=== PATIENT | male | born 1940 | race Caucasian/White ===

== ENCOUNTER 2022-04-15 11:56 | Emergency (ER) | payer OTHER ==
[~2022-04-15] VITALS: Ht 172.7 cm; Wt 90.7 kg
[2022-04-15 13:32] LABS: BASOPHILS ABSOLUTE AUTO 0.02 K/mm3 (0.00-0.23); BASOPHILS PERCENT AUTO 0 % (0-2); EOSINOPHILS PERCENT AUTO 0 % (0-6); Hematocrit 45.2 % (37.0-53.0); Hemoglobin 15.9 g/dL (13.5-17.5); IMMATURE GRAN ABSOLUTE AUTO 0.03 K/mm3 (0.00-0.10); IMMATURE GRAN PERCENT AUTO 0 % (0-1); LYMPHOCYTES ABSOLUTE AUTO 0.75 K/mm3 (0.84-5.20); LYMPHOCYTES PERCENT AUTO 8 % (21-46); MONOCYTES ABSOLUTE AUTO 0.68 K/mm3 (0.16-1.47); MONOCYTES PERCENT AUTO 7 % (4-13); Mean Corpuscular HGB 32.1 pg (26.0-34.0); Mean Corpuscular HGB Conc 35.2 g/dL (31.5-36.5); Mean Corpuscular Volume 91 fL (80-100); NEUTROPHILS ABSOLUTE AUTO 8.28 K/mm3 (1.96-9.15); NEUTROPHILS PERCENT AUTO 85 % (41-73); Platelet Count 182 K/mm3 (150-400); RDW Coefficient Variation 12.5 % (11.7-14.2); RDW Standard Deviation 41.5 fL (35.1-46.3); Red Blood Cell Count 4.96 M/mm3 (4.30-5.90); White Blood Cell Count 9.76 K/mm3 (4.00-11.30)
[2022-04-15 13:49] LABS: Albumin, Blood 3.9 g/dL (3.4-5.0); Albumin/Globulin Ratio 1.2 (0.8-1.8); Bilirubin, Total 0.9 mg/dL (0.1-1.0); Bun/Creatinine Ratio 12.1 (12.0-20.0); Calcium, Blood 9.4 mg/dL (8.5-10.1); Creatinine, Blood 1.99 mg/dL (0.60-1.20); Globulin, Blood 3.3 g/dL (2.2-4.0); Potassium, Blood 4.5 mmol/L (3.5-5.5); Total Protein, Blood 7.2 g/dL (6.4-8.2)
[2022-04-15 14:56] LABS: Source, Urine Clean Catch
[2022-04-15 15:00] LABS: Appearance, Urine Clear (Clear); Bilirubin, Urine Neg (Neg); Blood, Urine 4+ (Neg); Color, Urine Yellow (P-Yellow); Glucose Qualitative, Urine Neg (Neg); Ketones, Urine Neg (Neg); Leukocyte Esterase, Urine Neg (Neg); Nitrite, Urine Neg (Neg); Protein, Urine Neg (Neg); Urobilinogen, Urine NORM (Normal)
[2022-04-15 15:16] LABS: Bacteria Rare /hpf; Red Blood Cells, Urine 25-50 /hpf (0-2); Squamous Epithelial Cells Few /hpf (Few); White Blood Cells, Urine 0-2 /hpf (0-5)
== END 2022-04-15 17:09 | disposition home or self-care (01) ==
LOC: ER 11:56
PROVIDERS: Physician Assistant
DX: R33.9 Retention of urine, unspecified (principal); I25.10 Atherosclerotic heart disease of native coronary artery without angina pectoris; I25.2 Old myocardial infarction; Z87.891 Personal history of nicotine dependence
CPT/HCPCS: 36415; 51702; 51798; 74176; 80053; 81001; 83690; 85025; J1885; J7030

== ENCOUNTER → 2022-04-21 | Outpatient (CLI) | payer OTHER ==
[~2022-04-21] MED LIST: MYRBETRIQ25 MG PO
== END ==
LOC: LAB 15:18 → LAB SHORT 15:18
DX: N40.1 Benign prostatic hyperplasia with lower urinary tract symptoms (principal); N17.9 Acute kidney failure, unspecified; N21.0 Calculus in bladder; R31.0 Gross hematuria; R33.8 Other retention of urine
CPT/HCPCS: 87086

== ENCOUNTER 2022-04-22 04:37 | Emergency (ER) | payer OTHER ==
[~2022-04-22] VITALS: Ht 172.7 cm; Wt 90.7 kg
[2022-04-22 07:09] LABS: Source, Urine Foley catheter
[2022-04-22 07:29] LABS: Appearance, Urine Bloody (Clear); Bilirubin, Urine Neg (Neg); Blood, Urine 5+ (Neg); Color, Urine Red (P-Yellow); Glucose Qualitative, Urine Neg (Neg); Ketones, Urine 2+ (Neg); Leukocyte Esterase, Urine Neg (Neg); Nitrite, Urine Neg (Neg); Protein, Urine 4+ (Neg); Specific Gravity, Urine 1.015 (1.003-1.022); Urobilinogen, Urine NORM (Normal)
[2022-04-22 07:34] LABS: Bacteria Rare /hpf; Red Blood Cells, Urine TNTC /hpf (0-2); Squamous Epithelial Cells Not Seen /hpf (Few)
[2022-04-22 08:10] LABS: Triple Phosphate Crystals Few /hpf
[2022-04-22 08:32] LABS: BASOPHILS ABSOLUTE AUTO 0.04 K/mm3 (0.00-0.23); BASOPHILS PERCENT AUTO 1 % (0-2); EOSINOPHILS ABSOLUTE AUTO 0.37 K/mm3 (0.00-0.68); EOSINOPHILS PERCENT AUTO 6 % (0-6); Hematocrit 40.5 % (37.0-53.0); Hemoglobin 13.9 g/dL (13.5-17.5); IMMATURE GRAN ABSOLUTE AUTO 0.02 K/mm3 (0.00-0.10); IMMATURE GRAN PERCENT AUTO 0 % (0-1); LYMPHOCYTES ABSOLUTE AUTO 1.29 K/mm3 (0.84-5.20); LYMPHOCYTES PERCENT AUTO 20 % (21-46); MONOCYTES ABSOLUTE AUTO 0.55 K/mm3 (0.16-1.47); MONOCYTES PERCENT AUTO 8 % (4-13); Mean Corpuscular HGB Conc 34.3 g/dL (31.5-36.5); Mean Corpuscular Volume 93 fL (80-100); NEUTROPHILS ABSOLUTE AUTO 4.25 K/mm3 (1.96-9.15); NEUTROPHILS PERCENT AUTO 65 % (41-73); Platelet Count 179 K/mm3 (150-400); RDW Coefficient Variation 12.6 % (11.7-14.2); RDW Standard Deviation 43.5 fL (35.1-46.3); Red Blood Cell Count 4.34 M/mm3 (4.30-5.90); White Blood Cell Count 6.52 K/mm3 (4.00-11.30)
[2022-04-22 08:59] LABS: Bun/Creatinine Ratio 15.7 (12.0-20.0); Calcium, Blood 8.4 mg/dL (8.5-10.1); Creatinine, Blood 1.02 mg/dL (0.60-1.20); Potassium, Blood 4.2 mmol/L (3.5-5.5)
== END 2022-04-22 10:34 | disposition home or self-care (01) ==
LOC: ER 04:37
PROVIDERS: Emergency Medicine
DX: T83.091A Other mechanical complication of indwelling urethral catheter, initial encounter (principal); R31.9 Hematuria, unspecified; I25.10 Atherosclerotic heart disease of native coronary artery without angina pectoris; I25.2 Old myocardial infarction; Z95.5 Presence of coronary angioplasty implant and graft; Z87.891 Personal history of nicotine dependence; Y84.8 Other medical procedures as the cause of abnormal reaction of the patient, or of later complication, without mention of misadventure at the time of the procedure
CPT/HCPCS: 80048; 81001; 85025

== ENCOUNTER 2022-04-24 04:21 | Emergency (ER) | payer OTHER ==
[~2022-04-24] VITALS: Ht 172.7 cm; Wt 90.7 kg
[2022-04-24] MEDS ORDERED: MYRBETRIQ25 MG PO (05:41)
[2022-04-24 06:58] LABS: Source, Urine Foley catheter
[2022-04-24 07:10] LABS: Bilirubin, Urine Neg (Neg); Blood, Urine 5+ (Neg); Glucose Qualitative, Urine Neg (Neg); Ketones, Urine Neg (Neg); Leukocyte Esterase, Urine Neg (Neg); Nitrite, Urine Neg (Neg); Protein, Urine 3+ (Neg); Specific Gravity, Urine 1.015 (1.003-1.022); Urobilinogen, Urine NORM (Normal)
[2022-04-24 07:18] LABS: Appearance, Urine Bloody (Clear)
[2022-04-24 07:22] LABS: Red Blood Cells, Urine TNTC /hpf (0-2); Squamous Epithelial Cells Not Seen /hpf (Few); White Blood Cells, Urine 0-2 /hpf (0-5)
[2022-04-24 07:23] LABS: Bacteria Few /hpf
[2022-04-24 07:24] LABS: Color, Urine Red (P-Yellow)
[2022-04-24 07:25] LABS: Triple Phosphate Crystals Few /hpf
[2022-04-24 08:47] LABS: BASOPHILS ABSOLUTE AUTO 0.06 K/mm3 (0.00-0.23); BASOPHILS PERCENT AUTO 1 % (0-2); EOSINOPHILS ABSOLUTE AUTO 0.16 K/mm3 (0.00-0.68); EOSINOPHILS PERCENT AUTO 2 % (0-6); Hematocrit 40.2 % (37.0-53.0); Hemoglobin 13.9 g/dL (13.5-17.5); IMMATURE GRAN ABSOLUTE AUTO 0.03 K/mm3 (0.00-0.10); IMMATURE GRAN PERCENT AUTO 0 % (0-1); LYMPHOCYTES ABSOLUTE AUTO 1.19 K/mm3 (0.84-5.20); LYMPHOCYTES PERCENT AUTO 12 % (21-46); MONOCYTES ABSOLUTE AUTO 0.82 K/mm3 (0.16-1.47); MONOCYTES PERCENT AUTO 8 % (4-13); Mean Corpuscular HGB 31.9 pg (26.0-34.0); Mean Corpuscular HGB Conc 34.6 g/dL (31.5-36.5); Mean Corpuscular Volume 92 fL (80-100); NEUTROPHILS ABSOLUTE AUTO 7.53 K/mm3 (1.96-9.15); NEUTROPHILS PERCENT AUTO 77 % (41-73); Platelet Count 202 K/mm3 (150-400); RDW Coefficient Variation 12.4 % (11.7-14.2); RDW Standard Deviation 42.2 fL (35.1-46.3); Red Blood Cell Count 4.36 M/mm3 (4.30-5.90); White Blood Cell Count 9.79 K/mm3 (4.00-11.30)
[2022-04-24 09:04] LABS: Albumin, Blood 3.5 g/dL (3.4-5.0); Albumin/Globulin Ratio 1.1 (0.8-1.8); Bilirubin, Total 0.5 mg/dL (0.1-1.0); Bun/Creatinine Ratio 19.8 (12.0-20.0); Calcium, Blood 8.8 mg/dL (8.5-10.1); Creatinine, Blood 1.06 mg/dL (0.60-1.20); Globulin, Blood 3.2 g/dL (2.2-4.0); Magnesium, Blood 2.2 mg/dL (1.6-2.4); Potassium, Blood 4.1 mmol/L (3.5-5.5); Total Protein, Blood 6.7 g/dL (6.4-8.2)
[2022-04-24 12:58] LABS: Influenza A, PCR NEGATIVE (NEGATIVE); Influenza B, PCR NEGATIVE (NEGATIVE); Resp Syncytial Virus, PCR NEGATIVE (NEGATIVE); SARS-Cov-2 (COVID-19) PCR, MMC NEGATIVE (NEGATIVE)
== END 2022-04-24 13:11 | disposition short-term general hospital (02) ==
LOC: ER 04:21
PROVIDERS: Physician Assistant; Student in an Organized Health Care Education/Training Program
DX: T83.091A Other mechanical complication of indwelling urethral catheter, initial encounter (principal); R31.9 Hematuria, unspecified; I25.10 Atherosclerotic heart disease of native coronary artery without angina pectoris; Z79.899 Other long term (current) drug therapy; Z87.891 Personal history of nicotine dependence
CPT/HCPCS: 0241U; 51702; 51798; 74177; 80053; 81001; 83735; 85025; Q9967

== ENCOUNTER 2022-05-04 06:01 | Emergency (ER) | payer OTHER ==
[~2022-05-04] VITALS: Ht 170.2 cm; Wt 77.1 kg
[2022-05-04 07:04] LABS: Source, Urine Foley catheter
[2022-05-04 07:12] LABS: Appearance, Urine Hazy (Clear); Bilirubin, Urine Neg (Neg); Blood, Urine 5+ (Neg); Color, Urine Yellow (P-Yellow); Glucose Qualitative, Urine Neg (Neg); Ketones, Urine Neg (Neg); Leukocyte Esterase, Urine 3+ (Neg); Nitrite, Urine Neg (Neg); Protein, Urine 3+ (Neg); Specific Gravity, Urine 1.005 (1.003-1.022); Urobilinogen, Urine NORM (Normal)
[2022-05-04 07:18] LABS: Bacteria Many /hpf; Red Blood Cells, Urine 50-100 /hpf (0-2); Squamous Epithelial Cells Rare /hpf (Few); White Blood Cells, Urine 50-100 /hpf (0-5)
== END 2022-05-04 08:13 | disposition home or self-care (01) ==
LOC: ER 06:01
PROVIDERS: Emergency Medicine
DX: R33.9 Retention of urine, unspecified (principal); I25.10 Atherosclerotic heart disease of native coronary artery without angina pectoris; I25.2 Old myocardial infarction; Z95.5 Presence of coronary angioplasty implant and graft; Z79.899 Other long term (current) drug therapy; Z87.891 Personal history of nicotine dependence
CPT/HCPCS: 51702; 51798; 81001

== ENCOUNTER → 2023-05-31 | Outpatient (CLI) | payer OTHER ==
[~2023-05-31] MED LIST changes: +ASPI81CH PO; +ATOR80 PO; +TICA90TA PO
[2023-05-31 15:09] LABS: BASOPHILS ABSOLUTE AUTO 0.04 K/mm3 (0.00-0.23); BASOPHILS PERCENT AUTO 1 % (0-2); EOSINOPHILS ABSOLUTE AUTO 0.09 K/mm3 (0.00-0.68); EOSINOPHILS PERCENT AUTO 1 % (0-6); Hematocrit 45.2 % (37.0-53.0); Hemoglobin 15.9 g/dL (13.5-17.5); IMMATURE GRAN ABSOLUTE AUTO 0.02 K/mm3 (0.00-0.10); IMMATURE GRAN PERCENT AUTO 0 % (0-1); LYMPHOCYTES ABSOLUTE AUTO 1.17 K/mm3 (0.84-5.20); LYMPHOCYTES PERCENT AUTO 18 % (21-46); MONOCYTES ABSOLUTE AUTO 0.33 K/mm3 (0.16-1.47); MONOCYTES PERCENT AUTO 5 % (4-13); Mean Corpuscular HGB 32.3 pg (26.0-34.0); Mean Corpuscular HGB Conc 35.2 g/dL (31.5-36.5); Mean Corpuscular Volume 92 fL (80-100); Mean Platelet Volume 10.3 fL (9.1-12.4); NEUTROPHILS ABSOLUTE AUTO 4.95 K/mm3 (1.96-9.15); NEUTROPHILS PERCENT AUTO 75 % (41-73); Platelet Count 178 K/mm3 (150-400); RDW Coefficient Variation 12.8 % (11.7-14.2); RDW Standard Deviation 42.6 fL (35.1-46.3); Red Blood Cell Count 4.93 M/mm3 (4.30-5.90)
[2023-05-31 15:19] LABS: Albumin, Blood 3.9 g/dL (3.4-5.0); Albumin/Globulin Ratio 1.3 (0.8-1.8); Bilirubin, Total 0.7 mg/dL (0.1-1.0); Bun/Creatinine Ratio 12.7 (12.0-20.0); Calcium, Blood 8.7 mg/dL (8.5-10.1); Creatinine, Blood 1.02 mg/dL (0.60-1.20); Globulin, Blood 3.1 g/dL (2.2-4.0); Potassium, Blood 3.7 mmol/L (3.5-5.5)
== END ==
LOC: LAB SHORT 15:01 → LAB 15:01
PROVIDERS: Physician Assistant
DX: R07.9 Chest pain, unspecified (principal)
CPT/HCPCS: 80053; 83690; 83880; 84484; 85025

== ENCOUNTER 2023-07-24 19:54 | Inpatient (IN) | payer OTHER ==
[~2023-07-24] VITALS: Ht 172.7 cm; Wt 80.8 kg
[2023-07-24] MEDS ORDERED: BRILINTA90 M7 PO (20:17)
[2023-07-24] MEDS ORDERED: METOPROLOL SUCC25 MG PO (20:18)
[2023-07-24 20:50] LABS: BASOPHILS ABSOLUTE AUTO 0.03 K/mm3 (0.00-0.23); BASOPHILS PERCENT AUTO 0 % (0-2); EOSINOPHILS PERCENT AUTO 0 % (0-6); Hematocrit 41.3 % (37.0-53.0); Hemoglobin 14.4 g/dL (13.5-17.5); IMMATURE GRAN ABSOLUTE AUTO 0.06 K/mm3 (0.00-0.10); IMMATURE GRAN PERCENT AUTO 1 % (0-1); LYMPHOCYTES ABSOLUTE AUTO 0.43 K/mm3 (0.84-5.20); LYMPHOCYTES PERCENT AUTO 4 % (21-46); MONOCYTES ABSOLUTE AUTO 0.56 K/mm3 (0.16-1.47); MONOCYTES PERCENT AUTO 5 % (4-13); Mean Corpuscular HGB 31.7 pg (26.0-34.0); Mean Corpuscular HGB Conc 34.9 g/dL (31.5-36.5); Mean Corpuscular Volume 91 fL (80-100); Mean Platelet Volume 9.7 fL (9.1-12.4); NEUTROPHILS ABSOLUTE AUTO 10.62 K/mm3 (1.96-9.15); NEUTROPHILS PERCENT AUTO 91 % (41-73); Platelet Count 189 K/mm3 (150-400); RDW Coefficient Variation 13.2 % (11.7-14.2); Red Blood Cell Count 4.54 M/mm3 (4.30-5.90)
[2023-07-24 21:48] LABS: Albumin, Blood 4.1 g/dL (3.4-5.0); Albumin/Globulin Ratio 1.1 (0.8-1.8); Bilirubin, Total 0.6 mg/dL (0.1-1.0); Bun/Creatinine Ratio 6.1 (12.0-20.0); Calcium, Blood 9.1 mg/dL (8.5-10.1); Creatinine, Blood 18.3 mg/dL (0.60-1.20); Globulin, Blood 3.8 g/dL (2.2-4.0); Total Protein, Blood 7.9 g/dL (6.4-8.2)
[2023-07-24 21:50] LABS: Potassium, Blood 6.1 mmol/L (3.5-5.5)
[2023-07-24 23:09] LABS: Source, Urine Clean Catch
[2023-07-24 23:36] LABS: Bilirubin, Urine Neg (Neg); Blood, Urine 5+ (Neg); Glucose Qualitative, Urine Neg (Neg); Ketones, Urine Neg (Neg); Leukocyte Esterase, Urine 1+ (Neg); Nitrite, Urine Neg (Neg); Protein, Urine 2+ (Neg); Urobilinogen, Urine NORM (Normal)
[2023-07-24 23:36] LABS: International Normalized Ratio 1.05
[2023-07-24 23:52] LABS: Salicylate 2.4 mg/dL (2.8-20.0)
[2023-07-24 23:53] LABS: Ethanol (Alcohol), Blood, Med <3 mg/dL; Magnesium, Blood 2.8 mg/dL (1.6-2.4)
[2023-07-24 23:54] LABS: Acetaminophen, Random <2.0 ug/mL (10.0-30.0)
[2023-07-25] VITALS (7 sets, daily range): BP systolic 136–174; BP diastolic 62–95
[2023-07-25 00:02] LABS: U Amphetamine Screen Not Detected; U Barbituate Screen Not Detected; U Benzodiazapine Screen Not Detected; U Buprenorphine Screen Not Detected; U Cannabinoids Screen Not Detected; U Cocaine Screen Not Detected; U Methadone Screen Not Detected; U Methamphetamine Screen Not Detected; U Opiates Screen Not Detected; U Oxycodone Screen Not Detected; U Phencyclidine Screen Not Detected; U Propoxyphene Screen Not Detected
[2023-07-25 00:12] LABS: Influenza A, PCR NEGATIVE (NEGATIVE); Influenza B, PCR NEGATIVE (NEGATIVE); Resp Syncytial Virus, PCR NEGATIVE (NEGATIVE); SARS-Cov-2 (COVID-19) PCR, MMC NEGATIVE (NEGATIVE)
[2023-07-25 00:14] LABS: Appearance, Urine Hazy (Clear); Color, Urine Yellow (P-Yellow)
[2023-07-25 00:15] LABS: Bacteria Few /hpf; Red Blood Cells, Urine 50-100 /hpf (0-2); Squamous Epithelial Cells Few /hpf (Few); White Blood Cells, Urine 0-2 /hpf (0-5)
[2023-07-25 00:16] LABS: Amorphous Light (0-Heavy)
[2023-07-25 00:23] LABS: Phosphorus, Blood 8.8 mg/dL (2.5-4.9)
--- NOTE | 2023-07-25 05:19 | NUR ---
SHIFT SUMMARY/ARRIVAL TO PCU NOTE: RECEIVED REPORT FROM CASINO FLOOR PERSON ELICEO GORDON, PT SHORTLY ARRIVED TO PCU 11 ~0206 THIS AM. SLID FROM GURNEY TO PCU BED VIA SLIDE SHEET. PT ALERT, BUT ONLY ORIENTATED TO HIMSELF AND THAT HE IS IN THE HOSPITAL. VERY [place] AND CAN BE SLOW TO REPSOND AT TIMES. CARDIAC, ARRIVED IN SINUS ARRYHYTHMIA 60-80'S W/INTERMITTENT PAC'S. SBP HAS BEEN STABLE RANGING 140-150'S WITH NO REPORTS OF CP OR PRESSURE. REPSPIRATORY, MAINTAINS SPO2 >92% ON RA WITH NO REPORTS OF SOB OR DSYPNEA. GI/, DAVIDSON CATH PATENT AND DRAINING JAMILAH COLORED URINE TO GRAVITY. BS PRESENT T/O WITH NO REPORTS OF ABD PAIN OR N/V/D. PT REPORT'S THAT HE LIVES BY HIMSELF AND HAS RECENTLY HAD AN INCREASING NUMBER OF FALLS AT HOME. BICARB gtt INFUSING ORDERED VIA EMAR. ASSESSED PT FOR RISKS OF ANY IGNITION SOURCES WELL BEHAVIORS FOR INCREASED RISKS OF FIRE DANGER. PT EDUCATED ON COMMON SOURCES OF IGNITION WELL NEED TO KEEP A SAFE ENVIRONMENT. PT VOICED UNDERSTANDING. NO NEW ORDERS AT THIS TIME, WILL REPORT TO ONCOMING RN. RONNIE KELLY OF THIS NOTE
[2023-07-25 05:30] LABS: Bun/Creatinine Ratio 8.1 (12.0-20.0); Creatinine, Blood 8.96 mg/dL (0.60-1.20); Potassium, Blood 4.4 mmol/L (3.5-5.5)
--- NOTE | 2023-07-25 09:40 | NUR ---
Spoke with pt's brother Devaughn Mcgraw by phone; he lives in [place]. He provided pt's neighbor Lolis's phone number. States there are several people who live in [place] the [place], and look out for each other. Updated Devaughn on pt's current condition and plan of treatment. STates pt is normally not confused, and lives independently. PT states that he still drives.
[2023-07-25 10:08] LABS: Bun/Creatinine Ratio 11.1 (12.0-20.0); Calcium, Blood 9.2 mg/dL (8.5-10.1); Creatinine, Blood 4.25 mg/dL (0.60-1.20); Potassium, Blood 3.6 mmol/L (3.5-5.5)
--- NOTE | 2023-07-25 11:54 | NUR ---
Pt is working with occupational therapist right now.
--- NOTE | 2023-07-25 14:03 | NUR ---
Pt is alert, cooperative and pleasantly conversant ; however, he is very forgetful.
--- NOTE | 2023-07-25 17:44 | NUR ---
Pt is sitting up, eating dinner. Cheerfuly conversant. He has no complaints.
[2023-07-26 04:20] VITALS: BP 156/85
[2023-07-26 04:57] LABS: BASOPHILS ABSOLUTE AUTO 0.03 K/mm3 (0.00-0.23); BASOPHILS PERCENT AUTO 0 % (0-2); EOSINOPHILS ABSOLUTE AUTO 0.28 K/mm3 (0.00-0.68); EOSINOPHILS PERCENT AUTO 4 % (0-6); Hematocrit 35.6 % (37.0-53.0); Hemoglobin 12.7 g/dL (13.5-17.5); IMMATURE GRAN ABSOLUTE AUTO 0.03 K/mm3 (0.00-0.10); IMMATURE GRAN PERCENT AUTO 0 % (0-1); LYMPHOCYTES ABSOLUTE AUTO 1.44 K/mm3 (0.84-5.20); LYMPHOCYTES PERCENT AUTO 19 % (21-46); MONOCYTES ABSOLUTE AUTO 0.84 K/mm3 (0.16-1.47); MONOCYTES PERCENT AUTO 11 % (4-13); Mean Corpuscular HGB 31.8 pg (26.0-34.0); Mean Corpuscular HGB Conc 35.7 g/dL (31.5-36.5); Mean Corpuscular Volume 89 fL (80-100); Mean Platelet Volume 10.1 fL (9.1-12.4); NEUTROPHILS ABSOLUTE AUTO 4.93 K/mm3 (1.96-9.15); NEUTROPHILS PERCENT AUTO 65 % (41-73); Platelet Count 174 K/mm3 (150-400); RDW Coefficient Variation 12.6 % (11.7-14.2); RDW Standard Deviation 41.1 fL (35.1-46.3); Red Blood Cell Count 3.99 M/mm3 (4.30-5.90); White Blood Cell Count 7.55 K/mm3 (4.00-11.30)
[2023-07-26 05:44] LABS: Bun/Creatinine Ratio 19.9 (12.0-20.0); Creatinine, Blood 0.95 mg/dL (0.60-1.20); Potassium, Blood 3.3 mmol/L (3.5-5.5)
--- NOTE | 2023-07-26 07:05 | NUR ---
SHIFT SUMMARY PATIENT ALERT AND ORIENTED X3, FORGETFUL. 1 ASSIST WITH FWW TO THE RESTROOM. PATIENT HAD NO COMPLAINTS OF PAIN OR SHORTNESS OF BREATH. SPO2 >90% ON ROOM AIR. VITAL SIGNS STABLE, NO EVENTS ON TELEMETRY. DENIES CHEST PAIN. NO ACUTE ISSUES NOTED OVERNIGHT. WILL CONTINUE TO MONITOR. CALL LIGHT WITHIN REACH.
[2023-07-26 07:21] VITALS: BP 133/79
--- NOTE | 2023-07-26 07:36 | NUR ---
Bedside report received from TONY Vanessa. The pt is sitting up in a chair, drinking tea. His memory is spotty on the last couple of days. He is oriented to person, place, but really lacks insight as to why he came to the hospital, urinary retention(he denies any history of this, but with reminders can say that he did have catheters in the past), and ongoing treatment.
--- NOTE | 2023-07-26 11:29 | NUR ---
Pt talking with his neighbor Lisandro on the phone, requesting ride home from hospital today at discharge.
--- NOTE | 2023-07-26 13:06 | NUR ---
Discharge instructions were reviewed with the patient Eitan as well as his neighbor Lisandro who is here to give him a ride home. The pt has memory deficits, so Lisandro said that he would give the discharge information, including urology follow up appointment info for 08/02/23 to the pt's son Eitan Mcgraw who will be arriving on July 28. Dc catheter in place, draining clear yellow urine.
== END 2023-07-26 13:13 | disposition home or self-care (01) | DRG 682 ==
LOC: ER 19:54 → PCU 07-25 01:33
PROVIDERS: Emergency Medicine; Family Medicine; ADMIT Internal Medicine
PROC: 0T9B70Z Drainage of Bladder with Drainage Device, Via Natural or Artificial Opening (ICD-10-PCS; principal; 2023-07-25)
DX: N17.9 Acute kidney failure, unspecified (principal); G92.8 Other toxic encephalopathy; N13.8 Other obstructive and reflux uropathy; I25.10 Atherosclerotic heart disease of native coronary artery without angina pectoris; E87.5 Hyperkalemia; I10 Essential (primary) hypertension; G47.33 Obstructive sleep apnea (adult) (pediatric); R73.03 Prediabetes; N13.30 Unspecified hydronephrosis; N40.1 Benign prostatic hyperplasia with lower urinary tract symptoms; F03.A0 Unspecified dementia, mild, without behavioral disturbance, psychotic disturbance, mood disturbance, and anxiety; E78.00 Pure hypercholesterolemia, unspecified; E79.0 Hyperuricemia without signs of inflammatory arthritis and tophaceous disease; E83.39 Other disorders of phosphorus metabolism; R77.8 Other specified abnormalities of plasma proteins; R33.8 Other retention of urine; D72.829 Elevated white blood cell count, unspecified; Z95.5 Presence of coronary angioplasty implant and graft; Z87.891 Personal history of nicotine dependence; I25.2 Old myocardial infarction; Z87.442 Personal history of urinary calculi; Z60.2 Problems related to living alone; Z11.52 Encounter for screening for COVID-19; Z79.899 Other long term (current) drug therapy; Z79.82 Long term (current) use of aspirin
CPT/HCPCS: 0241U; 51702; 51798; 70450; 71045; 74176; 80048; 80053; 81001; 82140; 82947; 83605; 83690; 83735; 84100; 84443; 84484; 84550; 85025; 85610; 85730; 87086; 93005; 93010; 96361-59; 96365; 97116; 97161; 97166; 97530; 97535; 99285-25; A9270; G0480; J0696; J1644; J1815; J7030; J7060; J7070

== ENCOUNTER 2024-01-04 08:38 | Inpatient (IN) | payer OTHER ==
[~2024-01-04] VITALS: Ht 172.7 cm; Wt 74.6 kg
[~2024-01-04 08:38] MED LIST changes: +AMOCLA875 PO; -ATOR80 PO; +Acetaminophen650 M1 PO; +BISA10S PR; +BISA5EC PO; +BRILINTA90 M2 PO; +BRILINTA90 M7 PO; +FAMO20 PO; +LIPITOR80 MG PO; +METOPROLOL SUCC25 MG PO; +MIRALAX17 GM PO; +Senna-Extra17.2 MG PO; +TAMS.4ER PO; +ZESTRIL40 M1 PO
[2024-01-04] MEDS ORDERED: Lidocaine 2% Jelly Uro-Jet UR ONE (09:25)
[2024-01-04 10:19] LABS: BASOPHILS ABSOLUTE AUTO 0.04 K/mm3 (0.00-0.23); BASOPHILS PERCENT AUTO 0 % (0-2); EOSINOPHILS ABSOLUTE AUTO 0.01 K/mm3 (0.00-0.68); EOSINOPHILS PERCENT AUTO 0 % (0-6); Hematocrit 42.9 % (37.0-53.0); Hemoglobin 13.9 g/dL (13.5-17.5); IMMATURE GRAN ABSOLUTE AUTO 0.05 K/mm3 (0.00-0.10); IMMATURE GRAN PERCENT AUTO 0 % (0-1); LYMPHOCYTES ABSOLUTE AUTO 0.63 K/mm3 (0.84-5.20); LYMPHOCYTES PERCENT AUTO 5 % (21-46); MONOCYTES ABSOLUTE AUTO 0.76 K/mm3 (0.16-1.47); MONOCYTES PERCENT AUTO 6 % (4-13); Mean Corpuscular HGB 28.8 pg (26.0-34.0); Mean Corpuscular HGB Conc 32.4 g/dL (31.5-36.5); Mean Corpuscular Volume 89 fL (80-100); Mean Platelet Volume 9.7 fL (9.1-12.4); NEUTROPHILS ABSOLUTE AUTO 11.68 K/mm3 (1.96-9.15); NEUTROPHILS PERCENT AUTO 89 % (41-73); Platelet Count 263 K/mm3 (150-400); RDW Coefficient Variation 13.8 % (11.7-14.2); RDW Standard Deviation 45.7 fL (35.1-46.3); Red Blood Cell Count 4.83 M/mm3 (4.30-5.90); White Blood Cell Count 13.17 K/mm3 (4.00-11.30)
[2024-01-04 10:37] LABS: Bun/Creatinine Ratio 15.3 (12.0-20.0); Calcium, Blood 9.1 mg/dL (8.5-10.1); Creatinine, Blood 0.98 mg/dL (0.60-1.20); Potassium, Blood 3.3 mmol/L (3.5-5.5)
[2024-01-04 10:52] LABS: Source, Urine Foley catheter
[2024-01-04 10:57] LABS: Appearance, Urine Cloudy (Clear); Bilirubin, Urine Neg (Neg); Blood, Urine 5+ (Neg); Color, Urine Yellow (P-Yellow); Glucose Qualitative, Urine Neg (Neg); Ketones, Urine Neg (Neg); Leukocyte Esterase, Urine 3+ (Neg); Nitrite, Urine Neg (Neg); Protein, Urine 3+ (Neg); Specific Gravity, Urine 1.015 (1.003-1.022); Urobilinogen, Urine NORM (Normal)
[2024-01-04] MEDS ORDERED: Potassium Chloride 20 MEQ/15 ML UDC PO ONE (11:00)
[2024-01-04 11:07] LABS: Bacteria Many /hpf; White Blood Cells, Urine TNTC /hpf (0-5)
[2024-01-04 11:08] LABS: Red Blood Cells, Urine 50-100 /hpf (0-2)
[2024-01-04 11:09] LABS: Squamous Epithelial Cells Not Seen /hpf (Few)
[2024-01-04] MEDS ORDERED: NS 1,000 ML IV SCH (11:30)
[2024-01-04 14:03] VITALS: BP 162/70
[2024-01-04] MEDS ORDERED: Sodium Chloride 0.45% 1,000 ML IV SCH (16:50)
[2024-01-04] MEDS ORDERED: Bisacodyl 5 MG TabEC PO PRN (17:10)
[2024-01-04] MEDS ORDERED: Polyethylene Glycol 3350 17 gm PO PRN (17:10)
[2024-01-04] MEDS ORDERED: Acetaminophen 325 MG TABLET PO SCH (18:00)
--- NOTE | 2024-01-04 18:30 | NUR ---
SHIFT SUMMARY: PT ARRIVED TO MEDICAL FLOOR FROM ER THIS AFTERNOON. PT ORIENTED TO SELF. UNABLE TO STATE LOCATION, TOWN, REASON FOR ADMISSION, DAY OF THE WEEK, OR PLACE OF LIVING. PT COOPERATIVE WITH CARE BUT IS VERY FORGETFUL AND ATTEMPTING OOB SEVERAL TIMES. TOLL SETTLEMENT CLERK AWARE OF PT NEEDING SCU BED. BED ALARM ON. 09/12 NS INFUSING @ 50/HR IN LHA IV. REDNESS ON L. SIDE GROIN NOTED. CLEANED AND CREAM APPLIED. SCATTERED BRUISING NOTED.
[2024-01-04 19:57] VITALS: BP 165/91
[2024-01-04] MEDS ORDERED: Ticagrelor 90 MG TABLET PO SCH (21:00)
[2024-01-04] MEDS ORDERED: Atorvastatin 40 MG Tab PO SCH (21:00)
[2024-01-05 04:08] VITALS: BP 138/76
[2024-01-05 05:08] LABS: BASOPHILS ABSOLUTE AUTO 0.04 K/mm3 (0.00-0.23); BASOPHILS PERCENT AUTO 1 % (0-2); EOSINOPHILS PERCENT AUTO 2 % (0-6); Hematocrit 36.9 % (37.0-53.0); IMMATURE GRAN ABSOLUTE AUTO 0.01 K/mm3 (0.00-0.10); IMMATURE GRAN PERCENT AUTO 0 % (0-1); LYMPHOCYTES ABSOLUTE AUTO 1.41 K/mm3 (0.84-5.20); LYMPHOCYTES PERCENT AUTO 16 % (21-46); MONOCYTES PERCENT AUTO 9 % (4-13); Mean Corpuscular HGB 28.8 pg (26.0-34.0); Mean Corpuscular HGB Conc 32.5 g/dL (31.5-36.5); Mean Corpuscular Volume 89 fL (80-100); Mean Platelet Volume 10.2 fL (9.1-12.4); NEUTROPHILS ABSOLUTE AUTO 6.27 K/mm3 (1.96-9.15); NEUTROPHILS PERCENT AUTO 72 % (41-73); Platelet Count 234 K/mm3 (150-400); RDW Coefficient Variation 14.2 % (11.7-14.2); RDW Standard Deviation 45.5 fL (35.1-46.3); Red Blood Cell Count 4.17 M/mm3 (4.30-5.90); White Blood Cell Count 8.73 K/mm3 (4.00-11.30)
[2024-01-05 05:25] LABS: International Normalized Ratio 1.05; Prothrombin Time Results 11.2 Sec (9.7-11.5)
[2024-01-05 05:31] LABS: Anion Gap 8 mmol/L (3-11); Blood Urea Nitrogen 12 mg/dL (8-24); Bun/Creatinine Ratio 13.3 (12.0-20.0); CO2, Blood 26 mmol/L (21-32); Calcium, Blood 9.1 mg/dL (8.5-10.1); Chloride, Blood 117 mmol/L (98-108); Glomerular Filtration Rate 84 (60-); Glucose, Blood 109 mg/dL (70-99); Phosphorus, Blood 3.1 mg/dL (2.5-4.9); Potassium, Blood 3.7 mmol/L (3.5-5.5); Sodium, Blood 147 mmol/L (136-145)
--- NOTE | 2024-01-05 06:11 | NUR ---
END OF SHIFT SUMMARY PT ALERT, ORIENTED TO SELF AND SOMEWHAT PLACE, ABLE TO STATE HE IS AT [facility] BUT DOESNT SEEM TO UNDERSTAND [facility] IS A HOSPITAL NOR REASON FOR BEING AT [facility]. PT IMPULSIVE AT TIMES, PULLS ON TUBES, NEEDING FREQUENT REMINDERS AND REORIENTATION. IVF AND ABX INFUSED PER ORDERS. PT DENIES PAIN.
[2024-01-05 07:50] VITALS: BP 140/67
[2024-01-05] MEDS ORDERED: Tamsulosin HCl 0.4 MG Cap PO SCH (09:00)
[2024-01-05] MEDS ORDERED: Lisinopril 20 MG Tab PO SCH (09:00)
[2024-01-05] MEDS ORDERED: Famotidine 20 MG Tab PO SCH (09:00)
[2024-01-05] MEDS ORDERED: Metoprolol Succinate 25 MG TABCR PO SCH (09:00)
[2024-01-05 15:44] VITALS: BP 107/58
[2024-01-05 19:19] VITALS: BP 128/70
--- NOTE | 2024-01-05 20:04 | NUR ---
THERE WERE NO CHANGES IN PTR CONDITION TODAY, HE WAS VERY PLEASENT AND PLEASENTLY CONFUSED. I OFFERED SEVERAL TIMES FOR PT TO EXIT BED AND SIT IN CHAIR BUT HE REFUSED. PT WAS ASSISTED AND ENC TO REPOSITION ABOUT EVERY 2 HOUR S
--- NOTE | 2024-01-06 04:13 | NUR ---
SHIFT SUMMERY PT IS ALERT AND ORIENTED TO SELF AND PLACE. PT REQUIRES FREQUENT REDIRECTION TO NOT PULL AT HIS LINES AND CATHETER. PT DENIES PAIN. PT SLEPT THROUGHOUT THE NIGHT. HIS BREATHING WAS UNLABORED WITH EVEN CHEST RISE AND FALL. PT REMAINS A 1 PERSON ASSIST WHEN WALKING TO THE BATHROOM.
[2024-01-06 04:40] VITALS: BP 138/68
[2024-01-06 05:21] LABS: BASOPHILS ABSOLUTE AUTO 0.04 K/mm3 (0.00-0.23); BASOPHILS PERCENT AUTO 1 % (0-2); EOSINOPHILS ABSOLUTE AUTO 0.51 K/mm3 (0.00-0.68); EOSINOPHILS PERCENT AUTO 7 % (0-6); Hematocrit 34.2 % (37.0-53.0); Hemoglobin 11.1 g/dL (13.5-17.5); IMMATURE GRAN ABSOLUTE AUTO 0.03 K/mm3 (0.00-0.10); IMMATURE GRAN PERCENT AUTO 0 % (0-1); LYMPHOCYTES ABSOLUTE AUTO 1.47 K/mm3 (0.84-5.20); LYMPHOCYTES PERCENT AUTO 21 % (21-46); MONOCYTES ABSOLUTE AUTO 0.63 K/mm3 (0.16-1.47); MONOCYTES PERCENT AUTO 9 % (4-13); Mean Corpuscular HGB 28.5 pg (26.0-34.0); Mean Corpuscular HGB Conc 32.5 g/dL (31.5-36.5); Mean Corpuscular Volume 88 fL (80-100); Mean Platelet Volume 10.1 fL (9.1-12.4); NEUTROPHILS ABSOLUTE AUTO 4.28 K/mm3 (1.96-9.15); NEUTROPHILS PERCENT AUTO 62 % (41-73); Platelet Count 218 K/mm3 (150-400); RDW Coefficient Variation 14.1 % (11.7-14.2); RDW Standard Deviation 45.4 fL (35.1-46.3); Red Blood Cell Count 3.89 M/mm3 (4.30-5.90); White Blood Cell Count 6.96 K/mm3 (4.00-11.30)
[2024-01-06 06:07] LABS: Bun/Creatinine Ratio 18.2 (12.0-20.0); Calcium, Blood 8.5 mg/dL (8.5-10.1); Creatinine, Blood 0.93 mg/dL (0.60-1.20); Potassium, Blood 3.6 mmol/L (3.5-5.5)
[2024-01-06 07:35] VITALS: BP 148/69
[2024-01-06] MEDS ORDERED: Lisinopril 20 MG Tab PO SCH (09:00)
[2024-01-06 15:44] VITALS: BP 120/68
--- NOTE | 2024-01-06 19:15 | NUR ---
SHIFT SUMMARY PT WAS VERY PLEASENT TODAY SAT ON EDGE OF BED FOR A WILE BUT DIDNT WANT TO WALK OR SIT IN A CHAIR. NO C/O PAIN NO DISTRESS. WILL ATTEMPT TO AMB PT TOMORROW.
[2024-01-06 19:39] VITALS: BP 140/62
[2024-01-06] MEDS ORDERED: Potassium Chloride 20 MEQ TabCR PO ONE (20:45)
[2024-01-07 03:19] VITALS: BP 131/73
[2024-01-07 03:20] VITALS: BP 131/73
--- NOTE | 2024-01-07 04:04 | NUR ---
SHIFT SUMMARY PT GOT UP TO CLOSE HIS BLINDS WITHOUT ASSISTANCE, SETTING OFF THE BED ALARM. HE WAS REEDUCATED ON THE CALL DON'T FALL POLICY AND ASSISTED BACK TO BED. PT IS PLEASANTLY CONFUSED, A&O X 2 (PLACE AND SELF). PT IS STILL RECIEVING IV ANTIBIOTICS. PT SLEPT SOUNDLY THROUGHOUT THE NIGHT. HIS BREATHING WAS EVEN AND UNLABORED.
--- NOTE | 2024-01-07 04:26 | NUR ---
CTA/MOLDING PROCESS TECHNICIAN I HAVE READ THIS STUDENT'S NOTES. SHIFT SUMMARY IS LOCATED IN MOLDING PROCESS TECHNICIAN NOTES.
[2024-01-07 07:33] VITALS: BP 140/65
[2024-01-07] MEDS ORDERED: Potassium Chloride 20 MEQ TabCR PO ONE (09:00)
[2024-01-07 15:51] VITALS: BP 134/86
--- NOTE | 2024-01-07 18:47 | NUR ---
PT DID VERY WELL TODAY NO CHANGE IN CONDITION, CONVINCED THE PT TO GET UP AND USE THE BATHROOM INSTEAD OF HIS BRIEF. PT AMBULATED WELL WITH MINIMAL ASSIST.
[2024-01-07 20:14] VITALS: BP 126/79
[2024-01-07] MEDS ORDERED: NS 250 ML IV PRN (20:25)
[2024-01-08 03:09] VITALS: BP 110/43
--- NOTE | 2024-01-08 05:41 | NUR ---
SHIFT SUMMARY PT IS A&O TO SELF, AND HE KNOWS HE IS NOT HOME, BUT UNSURE WHERE HE IS. VSS ON RA. DENIES PAIN. GETS SCHEDULED TYLENOL. TOLERATING A HEART HEALTHY DIET. PT IS ABLE TO REPOSITION HIMSELF, NOOB THIS SHIFT. DAVIDSON CATHETER DRAINING CLOUDY URINE. NO BM THIS SHIFT. BED IN LOWEST POSTION, CALL LIGHT WITHIN REACH. BED ALARM SET FOR PT'S SAFETY. DELVIN DOES NOT USE CALL LIGHT APPROPRIATELY. FREQUENT ROUNDING DONE. CONTACT PRECAUTIONS MAINTAINED FOR ESBL AND E COLI IN URINE.
[2024-01-08 07:55] VITALS: BP 136/68
[2024-01-08 09:40] LABS: BASOPHILS ABSOLUTE AUTO 0.05 K/mm3 (0.00-0.23); BASOPHILS PERCENT AUTO 1 % (0-2); EOSINOPHILS ABSOLUTE AUTO 0.51 K/mm3 (0.00-0.68); EOSINOPHILS PERCENT AUTO 10 % (0-6); Hematocrit 35.4 % (37.0-53.0); Hemoglobin 11.8 g/dL (13.5-17.5); IMMATURE GRAN ABSOLUTE AUTO 0.01 K/mm3 (0.00-0.10); IMMATURE GRAN PERCENT AUTO 0 % (0-1); LYMPHOCYTES ABSOLUTE AUTO 1.06 K/mm3 (0.84-5.20); LYMPHOCYTES PERCENT AUTO 21 % (21-46); MONOCYTES ABSOLUTE AUTO 0.47 K/mm3 (0.16-1.47); MONOCYTES PERCENT AUTO 9 % (4-13); Mean Corpuscular HGB Conc 33.3 g/dL (31.5-36.5); Mean Corpuscular Volume 87 fL (80-100); NEUTROPHILS ABSOLUTE AUTO 3.03 K/mm3 (1.96-9.15); NEUTROPHILS PERCENT AUTO 59 % (41-73); Platelet Count 223 K/mm3 (150-400); RDW Coefficient Variation 13.7 % (11.7-14.2); Red Blood Cell Count 4.07 M/mm3 (4.30-5.90); White Blood Cell Count 5.13 K/mm3 (4.00-11.30)
[2024-01-08 10:14] LABS: Albumin, Blood 2.9 g/dL (3.4-5.0); Albumin/Globulin Ratio 0.8 (0.8-1.8); Bilirubin, Total 0.5 mg/dL (0.1-1.0); Calcium, Blood 8.6 mg/dL (8.5-10.1); Creatinine, Blood 0.81 mg/dL (0.60-1.20); Globulin, Blood 3.6 g/dL (2.2-4.0); Potassium, Blood 4.1 mmol/L (3.5-5.5); Total Protein, Blood 6.5 g/dL (6.4-8.2)
[2024-01-08 15:46] VITALS: BP 133/55
[2024-01-08 19:55] VITALS: BP 140/63
[2024-01-09 03:06] VITALS: BP 132/72
--- NOTE | 2024-01-09 06:45 | NUR ---
SHIFT SUMMARY PT IS A&O TO SELF, AND HE KNOWS HE IS NOT HOME, BUT UNSURE WHERE HE IS. NO ACUTE CHANGES OR EVENTS THIS SHIFT. VSS ON RA. DENIES PAIN. GETS SCHEDULED TYLENOL. TOLERATING A HEART HEALTHY DIET. PT IS ABLE TO REPOSITION HIMSELF, NOOB THIS SHIFT. DAVIDSON CATHETER DRAINING CLOUDY YELLOW URINE. NO BM THIS SHIFT. BED IN LOWEST POSTION, CALL LIGHT WITHIN REACH. BED ALARM SET FOR PT'S SAFETY. DELVIN DOES NOT USE CALL LIGHT APPROPRIATELY. FREQUENT ROUNDING DONE. CONTACT PRECAUTIONS MAINTAINED FOR ESBL AND E-COLI IN URINE.
[2024-01-09 07:48] VITALS: BP 148/78
[2024-01-09 09:16] LABS: BASOPHILS ABSOLUTE AUTO 0.05 K/mm3 (0.00-0.23); BASOPHILS PERCENT AUTO 1 % (0-2); EOSINOPHILS PERCENT AUTO 8 % (0-6); Hematocrit 38.8 % (37.0-53.0); Hemoglobin 12.8 g/dL (13.5-17.5); IMMATURE GRAN ABSOLUTE AUTO 0.02 K/mm3 (0.00-0.10); IMMATURE GRAN PERCENT AUTO 0 % (0-1); LYMPHOCYTES ABSOLUTE AUTO 1.26 K/mm3 (0.84-5.20); LYMPHOCYTES PERCENT AUTO 21 % (21-46); MONOCYTES ABSOLUTE AUTO 0.42 K/mm3 (0.16-1.47); MONOCYTES PERCENT AUTO 7 % (4-13); Mean Corpuscular HGB 28.6 pg (26.0-34.0); Mean Corpuscular Volume 87 fL (80-100); Mean Platelet Volume 9.6 fL (9.1-12.4); NEUTROPHILS ABSOLUTE AUTO 3.67 K/mm3 (1.96-9.15); NEUTROPHILS PERCENT AUTO 62 % (41-73); Platelet Count 235 K/mm3 (150-400); RDW Coefficient Variation 13.7 % (11.7-14.2); RDW Standard Deviation 43.8 fL (35.1-46.3); Red Blood Cell Count 4.48 M/mm3 (4.30-5.90); White Blood Cell Count 5.92 K/mm3 (4.00-11.30)
[2024-01-09 09:38] LABS: Albumin, Blood 3.1 g/dL (3.4-5.0); Albumin/Globulin Ratio 0.8 (0.8-1.8); Bilirubin, Total 0.5 mg/dL (0.1-1.0); Bun/Creatinine Ratio 27.7 (12.0-20.0); Calcium, Blood 8.7 mg/dL (8.5-10.1); Creatinine, Blood 0.8 mg/dL (0.60-1.20); Globulin, Blood 3.8 g/dL (2.2-4.0); Potassium, Blood 3.8 mmol/L (3.5-5.5); Total Protein, Blood 6.9 g/dL (6.4-8.2)
[2024-01-09 15:42] VITALS: BP 138/92
[2024-01-09 19:33] VITALS: BP 146/53
[2024-01-10 03:52] VITALS: BP 117/69
--- NOTE | 2024-01-10 05:53 | NUR ---
Patient alert but confused, cooperative with care, tolerating room air, VSS, resting in bed comfortably. Patient tolerated IV antibiotics appropriately, no significant events overnight.
[2024-01-10 08:06] VITALS: BP 152/70
[2024-01-10 09:18] LABS: BASOPHILS ABSOLUTE AUTO 0.05 K/mm3 (0.00-0.23); BASOPHILS PERCENT AUTO 1 % (0-2); EOSINOPHILS ABSOLUTE AUTO 0.55 K/mm3 (0.00-0.68); EOSINOPHILS PERCENT AUTO 10 % (0-6); Hemoglobin 13.4 g/dL (13.5-17.5); IMMATURE GRAN ABSOLUTE AUTO 0.02 K/mm3 (0.00-0.10); IMMATURE GRAN PERCENT AUTO 0 % (0-1); LYMPHOCYTES ABSOLUTE AUTO 1.01 K/mm3 (0.84-5.20); LYMPHOCYTES PERCENT AUTO 18 % (21-46); MONOCYTES ABSOLUTE AUTO 0.38 K/mm3 (0.16-1.47); MONOCYTES PERCENT AUTO 7 % (4-13); Mean Corpuscular HGB 28.6 pg (26.0-34.0); Mean Corpuscular HGB Conc 32.7 g/dL (31.5-36.5); Mean Corpuscular Volume 87 fL (80-100); Mean Platelet Volume 10.1 fL (9.1-12.4); NEUTROPHILS ABSOLUTE AUTO 3.48 K/mm3 (1.96-9.15); NEUTROPHILS PERCENT AUTO 63 % (41-73); Platelet Count 245 K/mm3 (150-400); RDW Coefficient Variation 13.7 % (11.7-14.2); RDW Standard Deviation 43.7 fL (35.1-46.3); Red Blood Cell Count 4.69 M/mm3 (4.30-5.90); White Blood Cell Count 5.49 K/mm3 (4.00-11.30)
[2024-01-10 09:43] LABS: Albumin, Blood 3.3 g/dL (3.4-5.0); Albumin/Globulin Ratio 0.8 (0.8-1.8); Bilirubin, Total 0.6 mg/dL (0.1-1.0); Bun/Creatinine Ratio 27.4 (12.0-20.0); Creatinine, Blood 0.73 mg/dL (0.60-1.20); Potassium, Blood 3.8 mmol/L (3.5-5.5); Total Protein, Blood 7.3 g/dL (6.4-8.2)
[2024-01-10] MEDS ORDERED: MEROPENEM1 G1 IV (11:20)
--- NOTE | 2024-01-10 13:34 | NUR ---
DISCHARGE SUMMARY PT DISCHARGED TO [facility]. PT LEFT ROOM PRIOR TO THIS NOTE. PT LEFT ROOM VIA WHEELCHAIR WITH TRANSPORTER. REPORT CALL[facility] AND [facility]IV[facility] TO SAT[facility] AT [facility] AT 1326, ALL QUESTIONS ANSWERED. POWERGLIDE PLACED BY CHARGE TABATHA AND IN PLACE AT TIME OF DC. BELONGINGS RETURNED.
== END 2024-01-10 13:14 | DRG 699 ==
LOC: ER 08:38 → MEDS 11:51 → ENPENDDIS 01-10 11:22 → MEDS 01-10 13:14
PROVIDERS: Family Medicine; Student in an Organized Health Care Education/Training Program; ADMIT Family Medicine
PROC: 0T9B70Z Drainage of Bladder with Drainage Device, Via Natural or Artificial Opening (ICD-10-PCS; principal; 2024-01-04)
DX: T83.511A Infection and inflammatory reaction due to indwelling urethral catheter, initial encounter (principal); E87.20 Acidosis, unspecified; N13.8 Other obstructive and reflux uropathy; N39.0 Urinary tract infection, site not specified; I25.10 Atherosclerotic heart disease of native coronary artery without angina pectoris; I10 Essential (primary) hypertension; E78.5 Hyperlipidemia, unspecified; R73.03 Prediabetes; R33.8 Other retention of urine; N40.1 Benign prostatic hyperplasia with lower urinary tract symptoms; Z79.82 Long term (current) use of aspirin; Z79.811 Long term (current) use of aromatase inhibitors; Z79.899 Other long term (current) drug therapy; R31.9 Hematuria, unspecified; G30.9 Alzheimer's disease, unspecified; F02.80 Dementia in other diseases classified elsewhere, unspecified severity, without behavioral disturbance, psychotic disturbance, mood disturbance, and anxiety; G47.33 Obstructive sleep apnea (adult) (pediatric); I48.91 Unspecified atrial fibrillation; Z95.5 Presence of coronary angioplasty implant and graft; B96.20 Unspecified Escherichia coli [E. coli] as the cause of diseases classified elsewhere
CPT/HCPCS: 36415; 51700; 80048; 80053; 80069; 81001; 83605; 83735; 85025; 85610; 87040; 87077; 87086; 87186; 99284-25; A9270; J2185; J7030

== ENCOUNTER 2024-03-07 18:56 | Emergency (ER) | payer OTHER ==
[~2024-03-07] VITALS: Ht 172.7 cm; Wt 78.0 kg
[~2024-03-07 18:56] MED LIST changes: +MEROPENEM1 G1 IV
[2024-03-07 19:03] VITALS: BP 150/65
[2024-03-07 19:38] LABS: Source, Urine Foley catheter
[2024-03-07 19:43] LABS: Appearance, Urine Turbid (Clear); Bilirubin, Urine Neg (Neg); Blood, Urine 5+ (Neg); Color, Urine Red (P-Yellow); Glucose Qualitative, Urine Neg (Neg); Ketones, Urine 2+ (Neg); Leukocyte Esterase, Urine Neg (Neg); Nitrite, Urine Neg (Neg); Protein, Urine 4+ (Neg); Specific Gravity, Urine 1.015 (1.003-1.022); Urobilinogen, Urine NORM (Normal); pH, Urine 6.5 (5.0-8.0)
[2024-03-07 19:48] LABS: Albumin, Blood 3.3 g/dL (3.4-5.0); Albumin/Globulin Ratio 0.9 (0.8-1.8); Bilirubin, Total 0.5 mg/dL (0.1-1.0); Bun/Creatinine Ratio 20.2 (12.0-20.0); Creatinine, Blood 0.94 mg/dL (0.60-1.20); Globulin, Blood 3.5 g/dL (2.2-4.0); Potassium, Blood 4.2 mmol/L (3.5-5.5); Total Protein, Blood 6.8 g/dL (6.4-8.2)
[2024-03-07 19:53] LABS: BASOPHILS ABSOLUTE AUTO 0.05 K/mm3 (0.00-0.23); BASOPHILS PERCENT AUTO 1 % (0-2); EOSINOPHILS ABSOLUTE AUTO 0.49 K/mm3 (0.00-0.68); EOSINOPHILS PERCENT AUTO 6 % (0-6); Hematocrit 37.5 % (37.0-53.0); Hemoglobin 12.2 g/dL (13.5-17.5); IMMATURE GRAN ABSOLUTE AUTO 0.02 K/mm3 (0.00-0.10); IMMATURE GRAN PERCENT AUTO 0 % (0-1); LYMPHOCYTES ABSOLUTE AUTO 1.44 K/mm3 (0.84-5.20); LYMPHOCYTES PERCENT AUTO 18 % (21-46); MONOCYTES ABSOLUTE AUTO 0.83 K/mm3 (0.16-1.47); MONOCYTES PERCENT AUTO 10 % (4-13); Mean Corpuscular HGB 28.6 pg (26.0-34.0); Mean Corpuscular HGB Conc 32.5 g/dL (31.5-36.5); Mean Corpuscular Volume 88 fL (80-100); Mean Platelet Volume 10.5 fL (9.1-12.4); NEUTROPHILS ABSOLUTE AUTO 5.35 K/mm3 (1.96-9.15); NEUTROPHILS PERCENT AUTO 66 % (41-73); Platelet Count 187 K/mm3 (150-400); RDW Coefficient Variation 15.2 % (11.7-14.2); RDW Standard Deviation 48.9 fL (35.1-46.3); Red Blood Cell Count 4.27 M/mm3 (4.30-5.90); White Blood Cell Count 8.18 K/mm3 (4.00-11.30)
[2024-03-07 20:10] LABS: Bacteria Rare /hpf; Red Blood Cells, Urine TNTC /hpf (0-2); Squamous Epithelial Cells Not Seen /hpf (Few); White Blood Cells, Urine 0-2 /hpf (0-5)
== END 2024-03-07 22:25 | disposition home or self-care (01) ==
LOC: ER 18:56
PROVIDERS: Emergency Medicine
DX: R31.9 Hematuria, unspecified (principal); Z79.899 Other long term (current) drug therapy; Z79.82 Long term (current) use of aspirin
CPT/HCPCS: 36415; 80053; 81001; 85025; 99283

== ENCOUNTER 2024-03-09 10:44 | Emergency (ER) | payer OTHER ==
[~2024-03-09] VITALS: Ht 172.7 cm; Wt 77.6 kg
[2024-03-09 10:51] VITALS: BP 137/67
[2024-03-09] MEDS ORDERED: Diphth,Pertuss(Acell),Tet Vac 0.5 ML VIAL IM ONE (11:20)
== END 2024-03-09 12:22 | disposition home or self-care (01) ==
LOC: ER 10:44
DX: S50.811A Abrasion of right forearm, initial encounter (principal); F03.90 Unspecified dementia, unspecified severity, without behavioral disturbance, psychotic disturbance, mood disturbance, and anxiety; W18.30XA Fall on same level, unspecified, initial encounter; Z87.891 Personal history of nicotine dependence; I25.2 Old myocardial infarction
CPT/HCPCS: 90471; 90715; 93005; 93010; 99283-25

== ENCOUNTER 2024-08-17 00:39 | Emergency (ER) | payer OTHER ==
[~2024-08-17] VITALS: Ht 172.7 cm; Wt 78.0 kg
[2024-08-17] MEDS ORDERED: LISI20 PO (01:06)
[2024-08-17 01:09] LABS: Source, Urine Clean Catch
[2024-08-17 01:18] LABS: Appearance, Urine Hazy (Clear); Bilirubin, Urine Neg (Neg); Blood, Urine 4+ (Neg); Color, Urine Brown (P-Yellow); Glucose Qualitative, Urine Neg (Neg); Ketones, Urine Neg (Neg); Leukocyte Esterase, Urine 2+ (Neg); Nitrite, Urine Neg (Neg); Protein, Urine 4+ (Neg); Specific Gravity, Urine 1.015 (1.003-1.022); Urobilinogen, Urine NORM (Normal)
[2024-08-17 01:20] LABS: BASOPHILS ABSOLUTE AUTO 0.06 K/mm3 (0.00-0.23); BASOPHILS PERCENT AUTO 1 % (0-2); EOSINOPHILS ABSOLUTE AUTO 0.58 K/mm3 (0.00-0.68); EOSINOPHILS PERCENT AUTO 7 % (0-6); Hematocrit 42.7 % (37.0-53.0); Hemoglobin 14.5 g/dL (13.5-17.5); IMMATURE GRAN ABSOLUTE AUTO 0.02 K/mm3 (0.00-0.10); IMMATURE GRAN PERCENT AUTO 0 % (0-1); LYMPHOCYTES ABSOLUTE AUTO 2.19 K/mm3 (0.84-5.20); LYMPHOCYTES PERCENT AUTO 25 % (21-46); MONOCYTES ABSOLUTE AUTO 0.94 K/mm3 (0.16-1.47); MONOCYTES PERCENT AUTO 11 % (4-13); Mean Corpuscular HGB 31.4 pg (26.0-34.0); Mean Corpuscular Volume 92 fL (80-100); Mean Platelet Volume 10.6 fL (9.1-12.4); NEUTROPHILS ABSOLUTE AUTO 4.82 K/mm3 (1.96-9.15); NEUTROPHILS PERCENT AUTO 56 % (41-73); Platelet Count 185 K/mm3 (150-400); RDW Coefficient Variation 13.6 % (11.7-14.2); RDW Standard Deviation 46.5 fL (35.1-46.3); Red Blood Cell Count 4.62 M/mm3 (4.30-5.90); White Blood Cell Count 8.61 K/mm3 (4.00-11.30)
[2024-08-17] MEDS ORDERED: Morphine Sulfate 4 MG/1 ML Injection IV ONE (01:30)
[2024-08-17 01:33] LABS: Bacteria Many /hpf; Red Blood Cells, Urine TNTC /hpf (0-2); Squamous Epithelial Cells Mod /hpf (Few); White Blood Cells, Urine 25-50 /hpf (0-5)
[2024-08-17 01:34] LABS: Amorphous Light (0-Heavy)
[2024-08-17 01:45] LABS: Creatinine, Blood 1.05 mg/dL (0.60-1.20)
[2024-08-17] MEDS ORDERED: CEPH500 PO (01:53)
[2024-08-17] MEDS ORDERED: Cephalexin Monohydrate 500 MG Cap PO ONE (01:55)
[2024-08-17 02:30] VITALS: BP 142/75
== END 2024-08-17 02:37 | disposition home or self-care (01) ==
LOC: ER 00:39
PROVIDERS: Emergency Medicine
DX: N39.0 Urinary tract infection, site not specified (principal); E78.00 Pure hypercholesterolemia, unspecified; M16.0 Bilateral primary osteoarthritis of hip; Z87.891 Personal history of nicotine dependence; Z79.82 Long term (current) use of aspirin; Z79.899 Other long term (current) drug therapy
CPT/HCPCS: 51702; 80048; 81001; 85025; 87086; 96374-59; 99283-25; A9270; J2270

== ENCOUNTER → 2024-09-25 | Outpatient (CLI) | payer OTHER ==
[~2024-09-25] MED LIST changes: +CEPH500 PO; +LISI20 PO
[2024-09-25 11:55] LABS: Source, Urine Voided
[2024-09-25 13:01] LABS: Appearance, Urine Cloudy (Clear); Bilirubin, Urine Neg (Neg); Blood, Urine 5+ (Neg); Color, Urine Yellow (P-Yellow); Glucose Qualitative, Urine Neg (Neg); Ketones, Urine Neg (Neg); Leukocyte Esterase, Urine 3+ (Neg); Nitrite, Urine Neg (Neg); Protein, Urine 3+ (Neg); Specific Gravity, Urine 1.025 (1.003-1.022); Urobilinogen, Urine NORM (Normal)
[2024-09-25 13:09] LABS: Bacteria Many /hpf; Hyaline Casts 0-2 /lpf (0-2); Red Blood Cells, Urine 50-100 /hpf (0-2); Squamous Epithelial Cells Not Seen /hpf (Few); White Blood Cells, Urine 50-100 /hpf (0-5)
== END ==
LOC: LAB SHORT 11:52 → LAB 11:52
PROVIDERS: Physician Assistant
DX: Z46.6 Encounter for fitting and adjustment of urinary device (principal); N40.1 Benign prostatic hyperplasia with lower urinary tract symptoms
CPT/HCPCS: 81001; 87086

== ENCOUNTER 2024-11-03 20:03 | Emergency (ER) | payer OTHER ==
[~2024-11-03] VITALS: Ht 172.7 cm; Wt 86.2 kg
[2024-11-03 20:30] LABS: BASOPHILS ABSOLUTE AUTO 0.05 K/mm3 (0.00-0.23); BASOPHILS PERCENT AUTO 1 % (0-2); EOSINOPHILS ABSOLUTE AUTO 0.21 K/mm3 (0.00-0.68); EOSINOPHILS PERCENT AUTO 3 % (0-6); Hematocrit 41.7 % (37.0-53.0); Hemoglobin 14.4 g/dL (13.5-17.5); IMMATURE GRAN ABSOLUTE AUTO 0.01 K/mm3 (0.00-0.10); IMMATURE GRAN PERCENT AUTO 0 % (0-1); LYMPHOCYTES ABSOLUTE AUTO 2.06 K/mm3 (0.84-5.20); LYMPHOCYTES PERCENT AUTO 32 % (21-46); MONOCYTES ABSOLUTE AUTO 0.79 K/mm3 (0.16-1.47); MONOCYTES PERCENT AUTO 12 % (4-13); Mean Corpuscular HGB 31.5 pg (26.0-34.0); Mean Corpuscular HGB Conc 34.5 g/dL (31.5-36.5); Mean Corpuscular Volume 91 fL (80-100); Mean Platelet Volume 10.3 fL (9.1-12.4); NEUTROPHILS ABSOLUTE AUTO 3.33 K/mm3 (1.96-9.15); NEUTROPHILS PERCENT AUTO 52 % (41-73); Platelet Count 236 K/mm3 (150-400); RDW Coefficient Variation 13.5 % (11.7-14.2); RDW Standard Deviation 45.1 fL (35.1-46.3); Red Blood Cell Count 4.57 M/mm3 (4.30-5.90); White Blood Cell Count 6.45 K/mm3 (4.00-11.30)
[2024-11-03] MEDS ORDERED: LOPERAMIDE212 PO (20:31)
[2024-11-03 20:48] LABS: CORONAVIRUS COVID-19 AG Negative (NEGATIVE); INFLUENZA A AG Negative (NEGATIVE); INFLUENZA B AG Negative (NEGATIVE)
[2024-11-03 20:55] LABS: Albumin, Blood 3.3 g/dL (3.4-5.0); Albumin/Globulin Ratio 0.9 (0.8-1.8); Bilirubin, Total 0.8 mg/dL (0.1-1.0); Bun/Creatinine Ratio 18.1 (12.0-20.0); Calcium, Blood 8.5 mg/dL (8.5-10.1); Creatinine, Blood 0.99 mg/dL (0.60-1.20); Globulin, Blood 3.6 g/dL (2.2-4.0); Potassium, Blood 3.8 mmol/L (3.5-5.5); Total Protein, Blood 6.9 g/dL (6.4-8.2)
[2024-11-03 21:37] LABS: Source, Urine Voided
[2024-11-03 21:42] LABS: Bilirubin, Urine Neg (Neg); Blood, Urine 3+ (Neg); Glucose Qualitative, Urine Neg (Neg); Ketones, Urine Neg (Neg); Leukocyte Esterase, Urine 3+ (Neg); Nitrite, Urine Pos (Neg); Protein, Urine 2+ (Neg); Specific Gravity, Urine 1.015 (1.003-1.022); Urobilinogen, Urine NORM (Normal)
[2024-11-03 21:45] VITALS: BP 125/68
[2024-11-03 21:49] LABS: Appearance, Urine Hazy (Clear); Color, Urine Yellow (P-Yellow)
[2024-11-03 21:51] LABS: Amorphous Light (0-Heavy); Bacteria Mod /hpf; Red Blood Cells, Urine 0-2 /hpf (0-2); Squamous Epithelial Cells Not Seen /hpf (Few); White Blood Cells, Urine TNTC /hpf (0-5)
[2024-11-03] MEDS ORDERED: CEPH500 PO (21:57)
[2024-11-03] MEDS ORDERED: Cephalexin Monohydrate 500 MG Cap PO ONE (22:00)
== END 2024-11-03 22:24 | disposition home or self-care (01) ==
LOC: ER 20:03
PROVIDERS: Emergency Medicine
DX: N39.0 Urinary tract infection, site not specified (principal); G47.00 Insomnia, unspecified; I25.10 Atherosclerotic heart disease of native coronary artery without angina pectoris; I25.2 Old myocardial infarction; E78.00 Pure hypercholesterolemia, unspecified; F03.90 Unspecified dementia, unspecified severity, without behavioral disturbance, psychotic disturbance, mood disturbance, and anxiety; Z87.891 Personal history of nicotine dependence; Z79.82 Long term (current) use of aspirin; Z79.899 Other long term (current) drug therapy
CPT/HCPCS: 71045; 80053; 81001; 85025; 87086; 87428-QW; 93005; 93010; 99284-25

== ENCOUNTER → 2024-11-20 | Outpatient (CLI) | payer OTHER ==
[~2024-11-20] MED LIST changes: +LOPERAMIDE212 PO
[2024-11-20 20:26] LABS: Source, Urine Foley catheter
[2024-11-20 20:30] LABS: Appearance, Urine Cloudy (Clear); Bilirubin, Urine Neg (Neg); Blood, Urine 5+ (Neg); Color, Urine Yellow (P-Yellow); Glucose Qualitative, Urine Neg (Neg); Ketones, Urine Neg (Neg); Leukocyte Esterase, Urine 3+ (Neg); Nitrite, Urine Pos (Neg); Protein, Urine 2+ (Neg); Specific Gravity, Urine 1.015 (1.003-1.022); Urobilinogen, Urine NORM (Normal)
[2024-11-20 20:44] LABS: Amorphous Light (0-Heavy); Bacteria Many /hpf; Red Blood Cells, Urine 50-100 /hpf (0-2); Squamous Epithelial Cells Few /hpf (Few)
[2024-11-20 20:45] LABS: Renal Epithelial Rare /hpf (0-Rare)
== END ==
LOC: LAB SHORT 18:45 → LAB 18:45
PROVIDERS: Physician Assistant
DX: N40.1 Benign prostatic hyperplasia with lower urinary tract symptoms (principal); N39.0 Urinary tract infection, site not specified; N13.8 Other obstructive and reflux uropathy
CPT/HCPCS: 81001; 87077; 87086; 87186

== ENCOUNTER 2025-03-08 17:09 | Inpatient (IN) | payer OTHER ==
[~2025-03-08] VITALS: Ht 172.7 cm; Wt 93.0 kg
[2025-03-08] MEDS ORDERED: Miconazole Nitrate 2% 85 GM PWD TOP ONE (18:00)
[2025-03-08 18:02] LABS: Alanine Aminotransfer (ALT/SGP 29.0 U/L (12-78); Albumin, Blood 3.0 g/dL (3.4-5.0); Albumin/Globulin Ratio 0.9 (0.8-1.8); Anion Gap 7.0 mmol/L (3-11); Aspartate Aminotrans (AST/SGOT 60.0 U/L (12-37); Bilirubin, Total 1.2 mg/dL (0.1-1.0); Blood Urea Nitrogen 49.0 mg/dL (8-24); CO2, Blood 25.0 mmol/L (21-32); Calcium, Blood 8.4 mg/dL (8.5-10.1); Chloride, Blood 112.0 mmol/L (98-108); Creatinine, Blood 1.57 mg/dL (0.60-1.20); Globulin, Blood 3.3 g/dL (2.2-4.0); Glucose, Blood 100.0 mg/dL (70-99); Potassium, Blood 4.0 mmol/L (3.5-5.5); Sodium, Blood 140.0 mmol/L (136-145); Total Protein, Blood 6.3 g/dL (6.4-8.2)
[2025-03-08 18:05] LABS: BASOPHILS ABSOLUTE AUTO 0.04 K/mm3 (0.00-0.23); BASOPHILS PERCENT AUTO 0 % (0-2); EOSINOPHILS ABSOLUTE AUTO 0.13 K/mm3 (0.00-0.68); EOSINOPHILS PERCENT AUTO 1 % (0-6); Hematocrit 43.4 % (37.0-53.0); Hemoglobin 14.4 g/dL (13.5-17.5); IMMATURE GRAN ABSOLUTE AUTO 0.06 K/mm3 (0.00-0.10); IMMATURE GRAN PERCENT AUTO 0 % (0-1); LYMPHOCYTES ABSOLUTE AUTO 1.69 K/mm3 (0.84-5.20); LYMPHOCYTES PERCENT AUTO 13 % (21-46); MONOCYTES ABSOLUTE AUTO 1.07 K/mm3 (0.16-1.47); MONOCYTES PERCENT AUTO 8 % (4-13); Mean Corpuscular HGB Conc 33.2 g/dL (31.5-36.5); Mean Corpuscular Volume 91 fL (80-100); NEUTROPHILS ABSOLUTE AUTO 10.44 K/mm3 (1.96-9.15); NEUTROPHILS PERCENT AUTO 78 % (41-73); NRBC ABSOLUTE 0.00 K/mm3 (0.00-0.02); NRBC Auto 0.0 /100 WBC (0.0-0.2); Platelet Count 154 K/mm3 (150-400); RDW Coefficient Variation 13.9 % (11.7-14.2); RDW Standard Deviation 47.1 fL (35.1-46.3)
[2025-03-08 18:05] LABS: Source, Urine Foley catheter
[2025-03-08 18:09] LABS: Bilirubin, Urine Neg (Neg); Color, Urine Amber (P-Yellow); Glucose Qualitative, Urine Neg (Neg); Ketones, Urine Neg (Neg); Leukocyte Esterase, Urine 3+ (Neg); Protein, Urine 4+ (Neg); Specific Gravity, Urine 1.015 (1.003-1.022); Urobilinogen, Urine NORM (Normal)
[2025-03-08 18:22] LABS: Red Blood Cells, Urine TNTC /hpf (0-2); White Blood Cells, Urine TNTC /hpf (0-5)
[2025-03-08] MEDS ORDERED: MASOPHEN325 M3 PO (18:53)
[2025-03-08] MEDS ORDERED: METO25ER PO (18:54)
[2025-03-08] MEDS ORDERED: SENNA LAXATIVE8.6 MG PO (18:54)
[2025-03-08] MEDS ORDERED: LISI20 PO (18:54)
[2025-03-08] MEDS ORDERED: FAMO20 PO (18:54)
[2025-03-08] MEDS ORDERED: ASPI81CH PO (18:55)
[2025-03-08] MEDS ORDERED: ATOR80 PO (18:55)
[2025-03-08] MEDS ORDERED: LOPE2C PO (18:56)
[2025-03-08] MEDS ORDERED: BISA5EC PO (18:57)
[2025-03-08] MEDS ORDERED: DULCOLAX400 MG/5 M PO (18:57)
[2025-03-08] MEDS ORDERED: MIRALAX17 GM PO (18:58)
[2025-03-08 19:00] LABS: Influenza A, PCR NEGATIVE (NEGATIVE); Influenza B, PCR NEGATIVE (NEGATIVE); Resp Syncytial Virus, PCR NEGATIVE (NEGATIVE); SARS-Cov-2 (COVID-19) PCR, MMC NEGATIVE (NEGATIVE)
[2025-03-08] MEDS ORDERED: Magnesium Hydroxide Conc 10 ML UDC PO PRN (20:15)
[2025-03-08] MEDS ORDERED: Polyethylene Glycol 3350 17 gm PO PRN (20:20)
[2025-03-08] MEDS ORDERED: Lactobacil 2-S.Thermo-Bifido 1 1 Cap PO SCH (21:00)
[2025-03-08] MEDS ORDERED: Miconazole Nitrate 28 GM CREAM..G. TOP SCH (21:15)
[2025-03-08 21:18] VITALS: BP 127/71
[2025-03-09] VITALS (9 sets, daily range): BP systolic 99–151; BP diastolic 64–95
[2025-03-09] MEDS ORDERED: Dose Adjust by Pharmacy XX STA ×3 (00:44→14:27)
[2025-03-09] MEDS ORDERED: Heparin Sodium,Porcine/0.5 NS 500 ML IV SCH (00:45)
[2025-03-09] MEDS ORDERED: Heparin Sodium 5000 Units/ML 1ML MDV IV ONE (00:45)
[2025-03-09 00:53] LABS: Anti-Xa UFH, PHA Monitoring <0.10 IU/mL; Prothrombin Time Results 11.4 Sec (9.7-11.5)
--- NOTE | 2025-03-09 07:19 | NUR ---
PT MONITORED DURING THE SHIFT,HEPARIN INFUSING ORDERED.NO C/O CHEST PAIN/PRESSURE.REMAINED ON 2L OXYGEN OVERNIGHT TO KEEP OXYGEN SATURATION >91%.THIS MORNING PT'S OXYGEN SATS DROPPED DOWN TO 84-86% ON 2L.OXYGEN FLOW RATE INCREASED TO 4L.OXYGEN SATURATION 96%.PT DENIES SOB.BEDSIDE REPORT COMPLETED,HEPARIN INFUSION RATE VERIFIED.PT DENIES NEEDS.CALL LIGHT AND PT'S ITEMS WITHIN REACH.MONITORING ONGOING PER CAREPLAN.
[2025-03-09 07:46] LABS: BASOPHILS ABSOLUTE AUTO 0.04 K/mm3 (0.00-0.23); BASOPHILS PERCENT AUTO 0 % (0-2); EOSINOPHILS ABSOLUTE AUTO 0.50 K/mm3 (0.00-0.68); EOSINOPHILS PERCENT AUTO 5 % (0-6); Hematocrit 39.6 % (37.0-53.0); Hemoglobin 13.3 g/dL (13.5-17.5); IMMATURE GRAN ABSOLUTE AUTO 0.04 K/mm3 (0.00-0.10); IMMATURE GRAN PERCENT AUTO 0 % (0-1); LYMPHOCYTES ABSOLUTE AUTO 1.71 K/mm3 (0.84-5.20); LYMPHOCYTES PERCENT AUTO 17 % (21-46); MONOCYTES ABSOLUTE AUTO 0.84 K/mm3 (0.16-1.47); MONOCYTES PERCENT AUTO 8 % (4-13); Mean Corpuscular HGB Conc 33.6 g/dL (31.5-36.5); Mean Corpuscular Volume 92 fL (80-100); NEUTROPHILS ABSOLUTE AUTO 6.88 K/mm3 (1.96-9.15); NEUTROPHILS PERCENT AUTO 69 % (41-73); NRBC ABSOLUTE 0.00 K/mm3 (0.00-0.02); NRBC Auto 0.0 /100 WBC (0.0-0.2); Platelet Count 129 K/mm3 (150-400); RDW Coefficient Variation 13.9 % (11.7-14.2); RDW Standard Deviation 46.9 fL (35.1-46.3)
[2025-03-09 08:05] LABS: Alanine Aminotransfer (ALT/SGP 27.0 U/L (12-78); Albumin, Blood 2.8 g/dL (3.4-5.0); Albumin/Globulin Ratio 0.9 (0.8-1.8); Anion Gap 6.0 mmol/L (3-11); Aspartate Aminotrans (AST/SGOT 54.0 U/L (12-37); Bilirubin, Total 1.3 mg/dL (0.1-1.0); Blood Urea Nitrogen 33.0 mg/dL (8-24); CO2, Blood 26.0 mmol/L (21-32); Calcium, Blood 7.9 mg/dL (8.5-10.1); Chloride, Blood 115.0 mmol/L (98-108); Creatinine, Blood 1.15 mg/dL (0.60-1.20); Globulin, Blood 3.2 g/dL (2.2-4.0); Glucose, Blood 96.0 mg/dL (70-99); Magnesium, Blood 1.8 mg/dL (1.6-2.4); Potassium, Blood 4.0 mmol/L (3.5-5.5); Sodium, Blood 143.0 mmol/L (136-145); Total Protein, Blood 6.0 g/dL (6.4-8.2)
[2025-03-09] MEDS ORDERED: Enoxaparin 40 MG/0.4 ML SYR SC SCH (09:00)
--- NOTE | 2025-03-09 09:49 | NUR ---
THE PT WAS C/O BLADDER PRESSURE, DESPITE HAVING A DAVIDOSN CATH IN PLACE. POSITION ON DAVIDSON WAS CHECKED, AND THE DAVIDSON WAS IRRIGATED. RED URINE W/ MULTIPLE CLOTS WAS NOTED. PRESSURE RESOVLED AFTER IRRIGATION. THIS RN CALLED DR. SIERRA AND LET HER KNOW. PLAN FOR PRN BLADDER IRRIGATION. SEE NOTES FOR UPDATES.
[2025-03-09] MEDS ORDERED: Metoprolol Tartrate 1 MG/ML 5 ML VIAL IV PRN (17:40)
--- NOTE | 2025-03-09 17:59 | NUR ---
SHIFT SUMMARY T/O THE SHIFT UNTIL ABOUT 1700 HE WAS A&OX3-4, BUT FORGETFUL AND REPEATED STORIES MULTIPLE TIMES. HE DID ANSWER ORIENTATION QUESTIONS APPROPRAITELY. AT ABOUT 1700 THE PT CONVERTED FROM SB/SR TO AFIB AND A REASSESSMENT WAS DONE. THE PT IS NOW ONLY ORIENTED TO SELF. BP STABLE. PT DENIES ANY ANGINA OR CHEST PRESSURE. SYMETRICAL EQUAL STRENGTH NOTED. THIS RN NOTIFIED DR. FOFANA OF CONVERSION AND NEURO CHANGES. EKG COMPLETED AND Rodrigue ROTH WOULD LIKE TO KEEP THE HEPARIN GTT INFUSING. HE ORDERED 5MG LOPRESSOR IV X5 FOR HR >130, BUT HOLD IF SBP <110. THIS RN CALLED DR. KRUGER ABOUT THE PT S NEURO CHANGES. PLAN FOR Q2 X2 NEURO CHECKS AND RESUME UNIT PROTOCOL OF Q4 IF NO CHANGES. HE IS A 1P ASSIST W/ FWW. A BASELINE HE IS IND. THE PT HAS BEEN BETWEEN RA, WHILE AWAKE, AND 2-4LNC WHILE ASLEEP. Rodrigue RIGO AWARE. HE DENIES ANY SOB AND HAS BEEN USING HIS INCENTIVE SPIROMETE AND FLUTTER VALVE AT BEDSIDE. HE HAS A DAVIDSON DRAINING TO GRAVITY. PRN BLADDER IRRIGATION. HE HAD RED URINE W/ CLOTS THIS MORNING, BUT HAS IMPROVED. URINE IS NOW PINK WITH SCANT SMALL CLOTS.CHAIR AND BED ALARM IN USE. SEE NOTES FOR UPDATES.
[2025-03-10] VITALS (7 sets, daily range): BP systolic 112–155; BP diastolic 60–78
[2025-03-10 04:32] LABS: BASOPHILS ABSOLUTE AUTO 0.03 K/mm3 (0.00-0.23); BASOPHILS PERCENT AUTO 0 % (0-2); EOSINOPHILS ABSOLUTE AUTO 0.90 K/mm3 (0.00-0.68); EOSINOPHILS PERCENT AUTO 10 % (0-6); Hematocrit 40.0 % (37.0-53.0); Hemoglobin 13.5 g/dL (13.5-17.5); IMMATURE GRAN ABSOLUTE AUTO 0.03 K/mm3 (0.00-0.10); IMMATURE GRAN PERCENT AUTO 0 % (0-1); LYMPHOCYTES ABSOLUTE AUTO 2.11 K/mm3 (0.84-5.20); LYMPHOCYTES PERCENT AUTO 24 % (21-46); MONOCYTES ABSOLUTE AUTO 0.71 K/mm3 (0.16-1.47); MONOCYTES PERCENT AUTO 8 % (4-13); Mean Corpuscular HGB Conc 33.8 g/dL (31.5-36.5); Mean Corpuscular Volume 92 fL (80-100); NEUTROPHILS ABSOLUTE AUTO 5.17 K/mm3 (1.96-9.15); NEUTROPHILS PERCENT AUTO 58 % (41-73); NRBC ABSOLUTE 0.00 K/mm3 (0.00-0.02); NRBC Auto 0.0 /100 WBC (0.0-0.2); Platelet Count 136 K/mm3 (150-400); RDW Coefficient Variation 13.5 % (11.7-14.2); RDW Standard Deviation 45.9 fL (35.1-46.3)
[2025-03-10 04:45] LABS: Anion Gap 5.0 mmol/L (3-11); Blood Urea Nitrogen 21.0 mg/dL (8-24); CO2, Blood 28.0 mmol/L (21-32); Calcium, Blood 8.1 mg/dL (8.5-10.1); Chloride, Blood 115.0 mmol/L (98-108); Creatinine, Blood 1.02 mg/dL (0.60-1.20); Glucose, Blood 104.0 mg/dL (70-99); Potassium, Blood 3.8 mmol/L (3.5-5.5); Sodium, Blood 144.0 mmol/L (136-145)
--- NOTE | 2025-03-10 07:15 | NUR ---
NOC SHIFT SUMMARY DELVIN IS ORIENTED TO SELF OVERNIGHT, NEUROCHECKS WNL, PLEASANT AND COOPERATIVE. DANIELA, SYMMETRICAL STRENGTH BUT WEAK T/O. SBA TO BED OR CHAIR. BED ALARM IN PLACE. URINE YELLOW, HEMATURIA RESOLVED FROM PRIOR SHIFT. AFIB TO SR THIS AM AROUND 0640 PER BOODY - TELEMETRY. HEPARIN GTT RUNNING PPO. EKG OBTAINED THIS AM PRIOR TO CONVERSION. NO CHEST PAIN/DISCOMFORT
--- NOTE | 2025-03-10 17:49 | NUR ---
PT IS A&O TO SELF, BUT HE IS ABLE TO MAKE HIS NEEDS KNOWN. HE IS ON RA. HE IS A SBA TO AMBULATE. DOES NOT USE THE CALL LIGHT. BED AND CHAIR ALARMS IN PLACE FOR SAFETY. NO NEEDS OR CONCERNS NOTED @ THIS TIME. PT SITTING UP IN CHAIR EATING DINNER W/CHAIR ALARM IN PLACE. CALL LIGHT IN REACH.
[2025-03-11 04:00] VITALS: BP 143/72
--- NOTE | 2025-03-11 05:34 | NUR ---
SHIFT SUMMARY PT HAS BEEN RESTING COMFORTABLY IN BED OVERNIGHT. PT HAS BEEN AOX1, TO SELF. HE HAS BEEN IMPULSIVE WHEN AWAKE, BED ALARM ARMED AND BED IN LOWEST POSITION. PT HAS BEEN EASILY REDIRECTABLE. PT HAS BEEN ON OXYGEN SLEEP STUDY FOR MOST OF NIGHT. HE HAS CHRONIC DAVIDSON CATHETER, PATENT AND DRAINING BY GRAVITY. PT HAS BEEN ON TELE, NO EVENTS OVERNIGHT. PT HAS HAD NO COMPLAINTS. NO ACUTE EVENTS OVERNIGHT.
[2025-03-11 07:16] LABS: BASOPHILS ABSOLUTE AUTO 0.04 K/mm3 (0.00-0.23); BASOPHILS PERCENT AUTO 1 % (0-2); EOSINOPHILS ABSOLUTE AUTO 0.85 K/mm3 (0.00-0.68); EOSINOPHILS PERCENT AUTO 13 % (0-6); Hematocrit 38.9 % (37.0-53.0); Hemoglobin 13.1 g/dL (13.5-17.5); IMMATURE GRAN ABSOLUTE AUTO 0.01 K/mm3 (0.00-0.10); IMMATURE GRAN PERCENT AUTO 0 % (0-1); LYMPHOCYTES ABSOLUTE AUTO 1.67 K/mm3 (0.84-5.20); LYMPHOCYTES PERCENT AUTO 26 % (21-46); MONOCYTES ABSOLUTE AUTO 0.57 K/mm3 (0.16-1.47); MONOCYTES PERCENT AUTO 9 % (4-13); Mean Corpuscular HGB Conc 33.7 g/dL (31.5-36.5); Mean Corpuscular Volume 91 fL (80-100); NEUTROPHILS ABSOLUTE AUTO 3.20 K/mm3 (1.96-9.15); NEUTROPHILS PERCENT AUTO 51 % (41-73); NRBC ABSOLUTE 0.00 K/mm3 (0.00-0.02); NRBC Auto 0.0 /100 WBC (0.0-0.2); Platelet Count 142 K/mm3 (150-400); RDW Coefficient Variation 13.3 % (11.7-14.2); RDW Standard Deviation 44.9 fL (35.1-46.3)
[2025-03-11 07:36] VITALS: BP 143/84
[2025-03-11 07:37] LABS: Anion Gap 8.0 mmol/L (3-11); Blood Urea Nitrogen 17.0 mg/dL (8-24); CO2, Blood 27.0 mmol/L (21-32); Calcium, Blood 7.7 mg/dL (8.5-10.1); Chloride, Blood 112.0 mmol/L (98-108); Creatinine, Blood 0.96 mg/dL (0.60-1.20); Glucose, Blood 101.0 mg/dL (70-99); Potassium, Blood 3.7 mmol/L (3.5-5.5); Sodium, Blood 143.0 mmol/L (136-145)
[2025-03-11] MEDS ORDERED: ELIQUIS5 M2 PO (09:35)
[2025-03-11] MEDS ORDERED: AMOCLA875 PO (09:35)
--- NOTE | 2025-03-11 11:42 | NUR ---
DISCHARGE: PT D/C PCU 13 @1140 VIA WHEELCHAIR TRANSPORT. REPORT CALLED TO RN AT [facility]. ALL BELONGINGS WITH PT. DICHARGE INSTRUCTIONS AND EDUCTION PROVIDED.
== END 2025-03-11 11:54 | disposition home health service (06) | DRG 698 ==
LOC: ER 17:09 → PCU 20:06
PROVIDERS: Family Medicine; Internal Medicine; Student in an Organized Health Care Education/Training Program; ADMIT Internal Medicine
PROC: 0T2BX0Z Change Drainage Device in Bladder, External Approach (ICD-10-PCS; principal; 2025-03-08)
PROC: 3E03329 Introduction of Other Anti-infective into Peripheral Vein, Percutaneous Approach (ICD-10-PCS; 2025-03-08)
DX: T83.511A Infection and inflammatory reaction due to indwelling urethral catheter, initial encounter (principal); A41.59 Other Gram-negative sepsis; A41.81 Sepsis due to Enterococcus; I21.A1 Myocardial infarction type 2; J96.01 Acute respiratory failure with hypoxia; Z16.12 Extended spectrum beta lactamase (ESBL) resistance; N17.9 Acute kidney failure, unspecified; N39.0 Urinary tract infection, site not specified; I25.10 Atherosclerotic heart disease of native coronary artery without angina pectoris; Z66 Do not resuscitate; E78.00 Pure hypercholesterolemia, unspecified; M16.0 Bilateral primary osteoarthritis of hip; I45.10 Unspecified right bundle-branch block; I12.9 Hypertensive chronic kidney disease with stage 1 through stage 4 chronic kidney disease, or unspecified chronic kidney disease; N18.9 Chronic kidney disease, unspecified; B35.6 Tinea cruris; D63.1 Anemia in chronic kidney disease; R31.9 Hematuria, unspecified; D69.6 Thrombocytopenia, unspecified; I48.0 Paroxysmal atrial fibrillation; R73.03 Prediabetes; G30.9 Alzheimer's disease, unspecified; G47.33 Obstructive sleep apnea (adult) (pediatric); N40.1 Benign prostatic hyperplasia with lower urinary tract symptoms; R35.0 Frequency of micturition; B96.1 Klebsiella pneumoniae [K. pneumoniae] as the cause of diseases classified elsewhere; F02.80 Dementia in other diseases classified elsewhere, unspecified severity, without behavioral disturbance, psychotic disturbance, mood disturbance, and anxiety; Z95.5 Presence of coronary angioplasty implant and graft; Z87.442 Personal history of urinary calculi; Z79.2 Long term (current) use of antibiotics; Z79.82 Long term (current) use of aspirin; Z79.899 Other long term (current) drug therapy; Z87.891 Personal history of nicotine dependence; Y84.6 Urinary catheterization as the cause of abnormal reaction of the patient, or of later complication, without mention of misadventure at the time of the procedure
CPT/HCPCS: 0241U; 36415; 51702; 71045; 71260; 80048; 80053; 81001; 82947; 83605; 83735; 83880; 84145; 84484; 85025; 85379; 85520; 85610; 85730; 87077; 87086; 87186; 93005; 93010; 93306; 94664; 94761; 94762; 96365-59; 99285-25; A9270; J1644; J2185; J7120; Q9967

== ENCOUNTER 2025-05-01 17:09 | Emergency (ER) | payer OTHER ==
[~2025-05-01] VITALS: Ht 170.2 cm; Wt 78.9 kg
[~2025-05-01 17:09] MED LIST changes: +ATOR80 PO; +DULCOLAX400 MG/5 M PO; +ELIQUIS5 M2 PO; +FINA5 PO; +LOPE2C PO; +MASOPHEN325 M3 PO; +METO25ER PO; +SENNA LAXATIVE8.6 MG PO
[2025-05-01] MEDS ORDERED: CEPH500 PO (18:24)
[2025-05-01 20:16] VITALS: BP 163/68
== END 2025-05-01 18:45 | disposition home or self-care (01) ==
LOC: ER 17:09
DX: N99.511 Cystostomy infection (principal); L03.311 Cellulitis of abdominal wall; Z87.442 Personal history of urinary calculi; M19.90 Unspecified osteoarthritis, unspecified site; Z79.01 Long term (current) use of anticoagulants; Z79.899 Other long term (current) drug therapy; Z87.891 Personal history of nicotine dependence; Z79.82 Long term (current) use of aspirin
CPT/HCPCS: 99283; A9270

== ENCOUNTER 2025-05-19 14:27 | Emergency (ER) | payer OTHER ==
[~2025-05-19] VITALS: Ht 172.7 cm; Wt 72.6 kg
[2025-05-19] MEDS ORDERED: NS 1,000 ML IV SCH (15:00)
[2025-05-19 15:30] LABS: Source, Urine Suprapubic Cath
[2025-05-19 15:32] LABS: BASOPHILS ABSOLUTE AUTO 0.05 K/mm3 (0.00-0.23); BASOPHILS PERCENT AUTO 1 % (0-2); EOSINOPHILS ABSOLUTE AUTO 0.43 K/mm3 (0.00-0.68); EOSINOPHILS PERCENT AUTO 6 % (0-6); Hematocrit 45.3 % (37.0-53.0); Hemoglobin 15.2 g/dL (13.5-17.5); IMMATURE GRAN ABSOLUTE AUTO 0.01 K/mm3 (0.00-0.10); IMMATURE GRAN PERCENT AUTO 0 % (0-1); LYMPHOCYTES ABSOLUTE AUTO 1.80 K/mm3 (0.84-5.20); LYMPHOCYTES PERCENT AUTO 27 % (21-46); MONOCYTES ABSOLUTE AUTO 0.67 K/mm3 (0.16-1.47); MONOCYTES PERCENT AUTO 10 % (4-13); Mean Corpuscular HGB Conc 33.6 g/dL (31.5-36.5); Mean Corpuscular Volume 94 fL (80-100); NEUTROPHILS ABSOLUTE AUTO 3.73 K/mm3 (1.96-9.15); NEUTROPHILS PERCENT AUTO 56 % (41-73); NRBC ABSOLUTE 0.00 K/mm3 (0.00-0.02); NRBC Auto 0.0 /100 WBC (0.0-0.2); Platelet Count 193 K/mm3 (150-400); RDW Coefficient Variation 13.1 % (11.7-14.2); RDW Standard Deviation 45.1 fL (35.1-46.3)
[2025-05-19 15:40] LABS: Anion Gap 6.0 mmol/L (3-11); Blood Urea Nitrogen 18.0 mg/dL (8-24); CO2, Blood 29.0 mmol/L (21-32); Calcium, Blood 8.4 mg/dL (8.5-10.1); Chloride, Blood 109.0 mmol/L (98-108); Creatinine, Blood 1.1 mg/dL (0.60-1.20); Glucose, Blood 119.0 mg/dL (70-99); Potassium, Blood 4.3 mmol/L (3.5-5.5); Sodium, Blood 140.0 mmol/L (136-145)
[2025-05-19 15:46] LABS: Bilirubin, Urine Neg (Neg); Color, Urine Red (P-Yellow); Glucose Qualitative, Urine Neg (Neg); Ketones, Urine 1+ (Neg); Leukocyte Esterase, Urine 3+ (Neg); Protein, Urine 3+ (Neg); Specific Gravity, Urine 1.010 (1.003-1.022); Urobilinogen, Urine NORM (Normal)
[2025-05-19 16:20] LABS: Red Blood Cells, Urine TNTC /hpf (0-2)
[2025-05-19 16:21] LABS: White Blood Cells, Urine 0-2 /hpf (0-5)
[2025-05-19] MEDS ORDERED: CefTRIAXone Sodium 1,000 MG in NS 100 ML IV ONE (16:25)
[2025-05-19] MEDS ORDERED: CEFP200 PO (16:29)
[2025-05-19 16:30] VITALS: BP 153/74
== END 2025-05-19 17:45 | disposition home or self-care (01) ==
LOC: ER 14:27
PROVIDERS: Registered Nurse
DX: R31.9 Hematuria, unspecified (principal); I10 Essential (primary) hypertension; I25.2 Old myocardial infarction; F03.90 Unspecified dementia, unspecified severity, without behavioral disturbance, psychotic disturbance, mood disturbance, and anxiety; K21.9 Gastro-esophageal reflux disease without esophagitis; Z79.01 Long term (current) use of anticoagulants; Z79.82 Long term (current) use of aspirin; Z79.899 Other long term (current) drug therapy; Z87.891 Personal history of nicotine dependence; Z96.0 Presence of urogenital implants
CPT/HCPCS: 51700; 80048; 81001; 85025; 87077; 87086; 87186; 96365-59; 99283-25; J0696; J7030

== ENCOUNTER 2025-08-07 10:15 | Emergency (ER) | payer OTHER ==
[~2025-08-07] VITALS: Ht 172.7 cm; Wt 86.2 kg
[~2025-08-07 10:15] MED LIST changes: +CEFP200 PO
[2025-08-07 11:44] LABS: Source, Urine Foley catheter
[2025-08-07 11:49] LABS: Bilirubin, Urine Neg (Neg); Color, Urine Yellow (P-Yellow); Glucose Qualitative, Urine Neg (Neg); Ketones, Urine Neg (Neg); Leukocyte Esterase, Urine 3+ (Neg); Protein, Urine 3+ (Neg); Specific Gravity, Urine 1.010 (1.003-1.022); Urobilinogen, Urine NORM (Normal)
[2025-08-07 12:00] LABS: Red Blood Cells, Urine 50-100 /hpf (0-2); White Blood Cells, Urine 50-100 /hpf (0-5)
[2025-08-07 13:41] VITALS: BP 130/80
== END 2025-08-07 13:42 | disposition home or self-care (01) ==
LOC: ER 10:15
PROVIDERS: Student in an Organized Health Care Education/Training Program
DX: T83.010A Breakdown (mechanical) of cystostomy catheter, initial encounter (principal); N39.0 Urinary tract infection, site not specified; Z87.891 Personal history of nicotine dependence; Z79.82 Long term (current) use of aspirin; Z79.899 Other long term (current) drug therapy
CPT/HCPCS: 51705; 51798; 81001; 87077; 87086; 87186; 99284-25; A9270; C2627